=== PATIENT | male | born 1960 | race Caucasian/White ===

== ENCOUNTER 2021-05-30 20:35 | Inpatient (IN) | payer MEDICAID, OTHER ==
[2021-05-30] VITALS (9 sets, daily range): BP systolic 149–163; BP diastolic 62–78
[~2021-05-30] VITALS: Ht 167.6 cm; Wt 68.5 kg
[2021-05-30 21:30] LABS: BG BASE EXCESS -1.1 mmol/L (-2.0-2.0); BG CARBOXYHEMOGLOBIN 0.3 % (0.5-1.5); BG DEOXYHEMOGLOBIN 1.1 % (0.0-5.0); BG FRACTION INSPIRED OXYGEN 40; BG HCO3 ACT 20.8 mmol/L (22.0-26.0); BG METHEMOGLOBIN 0.2 % (0.0-1.5); BG OXYGEN SATURATION 98.9 % (92.0-98.5); BG OXYHEMOGLOBIN 98.4 % (94.0-97.0); BG PH 7.505 (7.350-7.450); BG PO2 175.4 mmHg (75.0-100.0); BG SAMPLE SITE RIGHT RADIAL; BG TOTAL RESPIRATORY RATE 30 b/min; BG VENT MODE VENT - AC
[2021-05-30 21:51] LABS: BASOPHILS % 0.4 % (0.0-2.0); EOSINOPHILS % 2.9 % (0.0-5.0); HEMATOCRIT. 31.6 % (42.0-52.0); HEMOGLOBIN. 10.9 g/dL (14.0-18.0); LYMPHOCYTES % 8.3 % (20.0-50.0); MEAN CORPUSCULAR HEMOGLOBIN 32.8 pg (28.0-32.0); MEAN CORPUSCULAR VOLUME 94.8 fL (80.0-94.0); MEAN PLATELET VOLUME 7.8 fl (7.4-10.4); MONOCYTES % 6.5 % (2.0-8.0); NEUTROPHILS % 81.9 % (40.0-76.0); PLATELET 587 x1000/uL (130-400); RED BLOOD CELL COUNT 3.33 mill/uL (4.7-6.1); RED CELL DISTRIBUTION WIDTH 13.3 % (11.6-14.6)
[2021-05-30 21:55] LABS: CHLORIDE 122 mEq/L (98-107)
[2021-05-30] MEDS: NICARDIPINE 100 MG in SODIUM CHLORIDE 0.9% 60 ML IV PRN (22:38)
[2021-05-31] VITALS (98 sets, daily range): BP systolic 111–176; BP diastolic 50–94
[2021-05-31] MEDS ORDERED: METOPROLOL TARTRATE 50MG TABLET PO SCH (01:15)
[2021-05-31] MEDS: HYDRALAZINE 20MG/ML VIAL IV PRN ×2 (01:25→14:59)
[2021-05-31] MEDS: FENTANYL CITRATE/PF 2,500 MCG in SODIUM CHLORIDE 0.9% 200 ML IV PRN (02:38)
[2021-05-31] MEDS: NICARDIPINE 100 MG in SODIUM CHLORIDE 0.9% 60 ML IV PRN (05:40)
[2021-05-31 06:21] LABS: CHLORIDE 121 mEq/L (98-107)
[2021-05-31 06:24] LABS: HEMATOCRIT. 30.9 % (42.0-52.0); HEMOGLOBIN. 10.5 g/dL (14.0-18.0); MEAN CORPUSCULAR HEMOGLOBIN 33.3 pg (28.0-32.0); MEAN CORPUSCULAR VOLUME 97.5 fL (80.0-94.0); MEAN PLATELET VOLUME 8.4 fl (7.4-10.4); PLATELET 572 x1000/uL (130-400); RED BLOOD CELL COUNT 3.17 mill/uL (4.7-6.1); RED CELL DISTRIBUTION WIDTH 13.2 % (11.6-14.6)
[2021-05-31] MEDS: PANTOPRAZOLE SODIUM 40 MG/VIAL IV SCH (08:35)
[2021-05-31 08:38] LABS: BG BASE EXCESS -0.6 mmol/L (-2.0-2.0); BG CARBOXYHEMOGLOBIN 0.3 % (0.5-1.5); BG DEOXYHEMOGLOBIN 1.5 % (0.0-5.0); BG HCO3 ACT 22.3 mmol/L (22.0-26.0); BG METHEMOGLOBIN 0.3 % (0.0-1.5); BG OXYGEN SATURATION 98.5 % (92.0-98.5); BG OXYHEMOGLOBIN 97.9 % (94.0-97.0); BG PCO2 30.8 mmHg (35.0-45.0); BG PH 7.478 (7.350-7.450); BG PO2 148.9 mmHg (75.0-100.0); BG SAMPLE SITE RIGHT RADIAL; BG TOTAL HEMOGLOBIN 10.6 g/dL (12.0-18.0); BG VENT MODE VENT - AC
[2021-05-31] MEDS: LOSARTAN POTASSIUM 50 MG TABLET PO SCH (11:09)
[2021-05-31] MEDS: AMLODIPINE 10MG TABLET PO SCH (11:09)
[2021-05-31] MEDS: DEXTROSE 5% WATER 1,000 ML IV SCH (11:10)
[2021-05-31] MEDS: METOPROLOL TARTRATE 50MG TABLET PO SCH ×2 (11:11→22:00)
[2021-05-31 17:14] LABS: PLATELET ESTIMATE INCREASED
[2021-06-01] VITALS (96 sets, daily range): BP systolic 116–196; BP diastolic 51–128
[2021-06-01] MEDS: DEXTROSE 5% WATER 1,000 ML IV SCH ×2 (02:25→20:18)
[2021-06-01] MEDS: FENTANYL CITRATE/PF 2,500 MCG in SODIUM CHLORIDE 0.9% 200 ML IV PRN (05:34)
[2021-06-01 06:02] LABS: CHLORIDE 122 mEq/L (98-107); INR 1.1; PROTHROMBIN TIME 11.9 sec (9.6-11.0)
[2021-06-01 06:07] LABS: BASOPHILS % 0.5 % (0.0-2.0); EOSINOPHILS % 3.1 % (0.0-5.0); HEMATOCRIT. 30.9 % (42.0-52.0); HEMOGLOBIN. 10.3 g/dL (14.0-18.0); LYMPHOCYTES % 14.1 % (20.0-50.0); MEAN CORPUSCULAR HEMOGLOBIN 32.5 pg (28.0-32.0); MEAN CORPUSCULAR VOLUME 97.7 fL (80.0-94.0); MONOCYTES % 7.6 % (2.0-8.0); NEUTROPHILS % 74.7 % (40.0-76.0); PLATELET 605 x1000/uL (130-400); RED BLOOD CELL COUNT 3.16 mill/uL (4.7-6.1); RED CELL DISTRIBUTION WIDTH 13.4 % (11.6-14.6)
[2021-06-01] MEDS ORDERED: BACTERIOSTATIC SODIUM CHLORIDE 0.9% 30ML VIAL IJ ONE (08:22)
[2021-06-01] MEDS: METOPROLOL TARTRATE 50MG TABLET PO SCH (08:24)
[2021-06-01] MEDS: LOSARTAN POTASSIUM 50 MG TABLET PO SCH ×4 (08:24→21:46)
[2021-06-01] MEDS: AMLODIPINE 10MG TABLET PO SCH ×2 (08:24→17:39)
[2021-06-01] MEDS: PANTOPRAZOLE SODIUM 40 MG/VIAL IV SCH (08:25)
[2021-06-01] MEDS: HYDRALAZINE 20MG/ML VIAL IV PRN ×3 (08:25→21:47)
[2021-06-01] MEDS ORDERED: POTASSIUM CHLORIDE INJ 40 MEQ in DEXT 5% WATER 250 ML IV ONE (08:45)
[2021-06-01] MEDS ORDERED: CEFAZOLIN 1000MG PREMIX 50 ML IV SCH (09:00)
[2021-06-01] MEDS: KCL 20MEQ/100ML PREMIX 100 ML IV SCH ×2 (10:05→12:35)
[2021-06-01] MEDS: IPRATROPIUM/ALBUTEROL 0.5-3(2.5)MG/3ML NEB HHN SCH (16:02)
[2021-06-01] MEDS ORDERED: MIDAZOLAM HCL 5 MG/5 ML VIAL ONE (16:15)
[2021-06-01] MEDS ORDERED: FENTANYL CITRATE/PF 50MCG/ML 2ML VIAL ONE (16:15)
[2021-06-01] MEDS ORDERED: MIDAZOLAM HCL 5 MG/5 ML VIAL IV PRN (16:25)
[2021-06-01] MEDS: ACETAMINOPHEN 650MG/20.3ML UDC PO PRN (17:43)
[2021-06-01] MEDS: NICARDIPINE 100 MG in SODIUM CHLORIDE 0.9% 60 ML IV PRN (20:00)
[2021-06-01] MEDS: LEVOFLOXACIN 500MG PREMIX 100 ML IV SCH (20:18)
[2021-06-01 21:15] LABS: CLARITY URINE CLOUDY (CLEAR); COLOR URINE ORANGE (YELLOW); KETONES URINE NEGATIVE (NEGATIVE); LEUKOCYTE ESTERASE URINE TRACE (NEGATIVE); NITRITE URINE NEGATIVE (NEGATIVE); OCCULT BLOOD URINE 3+ (NEGATIVE); PH URINE 5.5 (4.5-8.0); PROTEIN URINE 2+ (NEGATIVE); SPECIFIC GRAVITY URINE 1.012 (1.005-1.030)
[2021-06-01] MEDS: LEVETIRACETAM 500MG/5ML CUP PO SCH (21:46)
[2021-06-01] MEDS: HYDRALAZINE HCL 100MG TABLET PO SCH (21:46)
[2021-06-02] VITALS (61 sets, daily range): BP systolic 113–169; BP diastolic 50–96
[2021-06-02] MEDS: ACETYLCYSTEINE 100MG/ML 10% VIAL 4ML INH SCH ×3 (00:55→17:05)
[2021-06-02] MEDS: IPRATROPIUM/ALBUTEROL 0.5-3(2.5)MG/3ML NEB HHN SCH ×3 (00:55→17:05)
[2021-06-02] MEDS: HYDRALAZINE 20MG/ML VIAL IV PRN (04:34)
[2021-06-02 04:46] LABS: BASOPHILS % 0.7 % (0.0-2.0); EOSINOPHILS % 2.3 % (0.0-5.0); HEMATOCRIT. 32.9 % (42.0-52.0); HEMOGLOBIN. 11.3 g/dL (14.0-18.0); MEAN CORPUSCULAR HEMOGLOBIN 32.8 pg (28.0-32.0); MEAN CORPUSCULAR VOLUME 95.4 fL (80.0-94.0); MEAN PLATELET VOLUME 7.7 fl (7.4-10.4); MONOCYTES % 5.3 % (2.0-8.0); NEUTROPHILS % 83.7 % (40.0-76.0); PLATELET 612 x1000/uL (130-400); RED BLOOD CELL COUNT 3.44 mill/uL (4.7-6.1); RED CELL DISTRIBUTION WIDTH 12.9 % (11.6-14.6)
[2021-06-02 04:53] LABS: CHLORIDE 119 mEq/L (98-107)
[2021-06-02] MEDS: HYDRALAZINE HCL 100MG TABLET PO SCH ×3 (06:10→23:03)
[2021-06-02] MEDS: DESMOPRESSIN ACETATE 0.1MG TABLET PO SCH ×2 (08:03→20:40)
[2021-06-02] MEDS: LEVETIRACETAM 500MG/5ML CUP PO SCH ×2 (08:03→20:39)
[2021-06-02] MEDS: PANTOPRAZOLE SODIUM 40 MG/VIAL IV SCH (08:03)
[2021-06-02] MEDS: AMLODIPINE 10MG TABLET PO SCH (08:03)
[2021-06-02] MEDS: LOSARTAN POTASSIUM 50 MG TABLET PO SCH ×2 (08:03→20:40)
[2021-06-02] MEDS: NICARDIPINE 100 MG in SODIUM CHLORIDE 0.9% 60 ML IV PRN (08:08)
[2021-06-02] MEDS: DEXTROSE 5% WATER 1,000 ML IV SCH (11:15)
[2021-06-02] MEDS: LEVOFLOXACIN 500MG PREMIX 100 ML IV SCH (18:38)
[2021-06-02] MEDS: MINOXIDIL 2.5MG TABLET PO SCH (20:40)
[2021-06-02] MEDS: METOPROLOL TARTRATE 25MG TABLET PO SCH (20:40)
[2021-06-02] MEDS ORDERED: AMLODIPINE 10MG TABLET PO SCH (21:00)
[2021-06-03] VITALS (12 sets, daily range): BP systolic 118–150; BP diastolic 54–93
[2021-06-03] MEDS: ACETAMINOPHEN 650MG/20.3ML UDC PO PRN ×2 (00:43→15:04)
[2021-06-03] MEDS: IPRATROPIUM/ALBUTEROL 0.5-3(2.5)MG/3ML NEB HHN SCH ×3 (00:51→15:44)
[2021-06-03] MEDS: ACETYLCYSTEINE 100MG/ML 10% VIAL 4ML INH SCH ×3 (00:51→15:44)
[2021-06-03] MEDS: DEXTROSE 5% WATER 1,000 ML IV SCH ×2 (01:01→20:59)
[2021-06-03] MEDS: HYDRALAZINE HCL 100MG TABLET PO SCH ×3 (05:05→21:03)
[2021-06-03 06:46] LABS: BASOPHILS % 0.3 % (0.0-2.0); EOSINOPHILS % 3.3 % (0.0-5.0); HEMATOCRIT. 28.8 % (42.0-52.0); LYMPHOCYTES % 11.9 % (20.0-50.0); MEAN CORPUSCULAR HEMOGLOBIN 33.2 pg (28.0-32.0); MEAN CORPUSCULAR VOLUME 95.9 fL (80.0-94.0); MEAN PLATELET VOLUME 7.6 fl (7.4-10.4); MONOCYTES % 5.3 % (2.0-8.0); NEUTROPHILS % 79.2 % (40.0-76.0); PLATELET 521 x1000/uL (130-400); RED BLOOD CELL COUNT 3.01 mill/uL (4.7-6.1); RED CELL DISTRIBUTION WIDTH 12.9 % (11.6-14.6)
[2021-06-03 06:52] LABS: CHLORIDE 117 mEq/L (98-107)
[2021-06-03] MEDS ORDERED: POTASSIUM CHLORIDE 20MEQ/PACKET GT NR (09:00)
[2021-06-03] MEDS: PANTOPRAZOLE SODIUM 40 MG/VIAL IV SCH (09:32)
[2021-06-03] MEDS: LOSARTAN POTASSIUM 50 MG TABLET PO SCH ×2 (09:33→20:54)
[2021-06-03] MEDS: MINOXIDIL 2.5MG TABLET PO SCH ×2 (09:33→20:55)
[2021-06-03] MEDS: AMLODIPINE 10MG TABLET PO SCH (09:34)
[2021-06-03] MEDS: DESMOPRESSIN ACETATE 0.1MG TABLET PO SCH ×2 (09:34→20:54)
[2021-06-03] MEDS: LEVETIRACETAM 500MG/5ML CUP PO SCH ×2 (09:35→20:54)
[2021-06-03] MEDS: METOPROLOL TARTRATE 25MG TABLET PO SCH ×2 (09:35→20:56)
[2021-06-03] MEDS: LEVOFLOXACIN 500MG PREMIX 100 ML IV SCH (18:08)
[2021-06-04] VITALS (11 sets, daily range): BP systolic 112–179; BP diastolic 68–111
[2021-06-04] MEDS: IPRATROPIUM/ALBUTEROL 0.5-3(2.5)MG/3ML NEB HHN SCH ×3 (00:37→16:51)
[2021-06-04] MEDS: ACETYLCYSTEINE 100MG/ML 10% VIAL 4ML INH SCH ×3 (00:37→16:51)
[2021-06-04] MEDS: HYDRALAZINE HCL 100MG TABLET PO SCH ×3 (05:06→22:30)
[2021-06-04 06:19] LABS: BASOPHILS % 0.5 % (0.0-2.0); EOSINOPHILS % 4.4 % (0.0-5.0); HEMATOCRIT. 30.4 % (42.0-52.0); HEMOGLOBIN. 10.2 g/dL (14.0-18.0); LYMPHOCYTES % 8.8 % (20.0-50.0); MEAN CORPUSCULAR HEMOGLOBIN 32.1 pg (28.0-32.0); MEAN CORPUSCULAR VOLUME 95.2 fL (80.0-94.0); MEAN PLATELET VOLUME 7.7 fl (7.4-10.4); MONOCYTES % 4.4 % (2.0-8.0); NEUTROPHILS % 81.9 % (40.0-76.0); PLATELET 512 x1000/uL (130-400); RED BLOOD CELL COUNT 3.19 mill/uL (4.7-6.1); RED CELL DISTRIBUTION WIDTH 12.8 % (11.6-14.6)
[2021-06-04 07:05] LABS: CHLORIDE 115 mEq/L (98-107)
[2021-06-04] MEDS: FAMOTIDINE 20MG/2ML VIAL IV SCH ×2 (08:43→20:46)
[2021-06-04] MEDS: LEVETIRACETAM 500MG/5ML CUP PO SCH ×2 (08:43→20:46)
[2021-06-04] MEDS: LOSARTAN POTASSIUM 50 MG TABLET PO SCH ×2 (08:43→20:47)
[2021-06-04] MEDS: AMLODIPINE 10MG TABLET PO SCH (08:44)
[2021-06-04] MEDS: METOPROLOL TARTRATE 25MG TABLET PO SCH ×2 (08:44→20:47)
[2021-06-04] MEDS: DESMOPRESSIN ACETATE 0.1MG TABLET PO SCH ×2 (08:44→20:48)
[2021-06-04] MEDS: MINOXIDIL 2.5MG TABLET PO SCH ×2 (09:37→20:48)
[2021-06-04] MEDS: DEXTROSE 5% WATER 1,000 ML IV SCH (17:49)
[2021-06-04] MEDS: LEVOFLOXACIN 500MG PREMIX 100 ML IV SCH (18:03)
[2021-06-05] VITALS (11 sets, daily range): BP systolic 108–157; BP diastolic 44–93
[2021-06-05] MEDS: IPRATROPIUM/ALBUTEROL 0.5-3(2.5)MG/3ML NEB HHN SCH ×3 (00:19→14:06)
[2021-06-05] MEDS: ACETYLCYSTEINE 100MG/ML 10% VIAL 4ML INH SCH ×3 (00:20→14:06)
[2021-06-05] MEDS: HYDRALAZINE HCL 100MG TABLET PO SCH ×3 (05:08→21:48)
[2021-06-05] MEDS: DEXTROSE 5% WATER 1,000 ML IV SCH (05:09)
[2021-06-05 05:56] LABS: BASOPHILS % 0.4 % (0.0-2.0); EOSINOPHILS % 5.5 % (0.0-5.0); HEMATOCRIT. 30.3 % (42.0-52.0); HEMOGLOBIN. 10.5 g/dL (14.0-18.0); LYMPHOCYTES % 10.9 % (20.0-50.0); MEAN CORPUSCULAR HEMOGLOBIN 32.9 pg (28.0-32.0); MEAN CORPUSCULAR VOLUME 94.7 fL (80.0-94.0); MEAN PLATELET VOLUME 7.4 fl (7.4-10.4); MONOCYTES % 5.6 % (2.0-8.0); NEUTROPHILS % 77.6 % (40.0-76.0); PLATELET 466 x1000/uL (130-400); RED CELL DISTRIBUTION WIDTH 12.8 % (11.6-14.6)
[2021-06-05 06:10] LABS: CHLORIDE 111 mEq/L (98-107)
[2021-06-05] MEDS: AMLODIPINE 10MG TABLET PO SCH (09:00)
[2021-06-05] MEDS: METOPROLOL TARTRATE 25MG TABLET PO SCH ×2 (09:00→21:48)
[2021-06-05] MEDS: LOSARTAN POTASSIUM 50 MG TABLET PO SCH ×2 (09:00→21:49)
[2021-06-05] MEDS: MINOXIDIL 2.5MG TABLET PO SCH ×2 (09:00→21:47)
[2021-06-05] MEDS: LEVETIRACETAM 500MG/5ML CUP PO SCH ×2 (09:50→21:48)
[2021-06-05] MEDS: DESMOPRESSIN ACETATE 0.1MG TABLET PO SCH ×2 (09:50→21:49)
[2021-06-05] MEDS: FAMOTIDINE 20MG/2ML VIAL IV SCH ×2 (09:50→21:47)
[2021-06-05] MEDS: ACETAMINOPHEN 650MG/20.3ML UDC PO PRN ×2 (10:06→16:22)
[2021-06-05] MEDS: LEVOFLOXACIN 500MG PREMIX 100 ML IV SCH (18:45)
[2021-06-06] VITALS (12 sets, daily range): BP systolic 89–139; BP diastolic 46–74
[2021-06-06] MEDS: ACETYLCYSTEINE 100MG/ML 10% VIAL 4ML INH SCH ×4 (00:30→16:08)
[2021-06-06] MEDS: IPRATROPIUM/ALBUTEROL 0.5-3(2.5)MG/3ML NEB HHN SCH ×3 (00:56→16:08)
[2021-06-06] MEDS: HYDRALAZINE HCL 100MG TABLET PO SCH ×3 (05:27→21:06)
[2021-06-06 06:06] LABS: HEMATOCRIT. 30.4 % (42.0-52.0); HEMOGLOBIN. 10.3 g/dL (14.0-18.0)
[2021-06-06 06:07] LABS: BASOPHILS % 0.2 % (0.0-2.0); LYMPHOCYTES % 8.8 % (20.0-50.0); MEAN CORPUSCULAR HEMOGLOBIN 32.2 pg (28.0-32.0); MEAN CORPUSCULAR VOLUME 94.8 fL (80.0-94.0); MONOCYTES % 3.8 % (2.0-8.0); NEUTROPHILS % 84.2 % (40.0-76.0); PLATELET 411 x1000/uL (130-400); RED CELL DISTRIBUTION WIDTH 12.4 % (11.6-14.6)
[2021-06-06 06:29] LABS: CHLORIDE 108 mEq/L (98-107)
[2021-06-06] MEDS: FAMOTIDINE 20MG/2ML VIAL IV SCH (09:09)
[2021-06-06] MEDS: LEVETIRACETAM 500MG/5ML CUP PO SCH ×2 (09:09→21:02)
[2021-06-06] MEDS: LOSARTAN POTASSIUM 50 MG TABLET PO SCH ×2 (09:09→21:02)
[2021-06-06] MEDS: METOPROLOL TARTRATE 25MG TABLET PO SCH ×2 (09:09→21:06)
[2021-06-06] MEDS: MINOXIDIL 2.5MG TABLET PO SCH ×2 (09:10→21:07)
[2021-06-06] MEDS: AMLODIPINE 10MG TABLET PO SCH (09:10)
[2021-06-06] MEDS: DESMOPRESSIN ACETATE 0.1MG TABLET PO SCH ×2 (09:40→21:02)
[2021-06-06] MEDS: METOCLOPRAMIDE HCL 10MG/2ML VIAL IV SCH ×3 (13:01→23:00)
[2021-06-06] MEDS: FAMOTIDINE 20MG TABLET PO SCH (21:03)
[2021-06-07] VITALS (13 sets, daily range): BP systolic 101–136; BP diastolic 52–80
[2021-06-07] MEDS: IPRATROPIUM/ALBUTEROL 0.5-3(2.5)MG/3ML NEB HHN SCH ×3 (00:34→15:17)
[2021-06-07] MEDS: HYDRALAZINE HCL 100MG TABLET PO SCH ×3 (05:26→21:40)
[2021-06-07] MEDS: METOCLOPRAMIDE HCL 10MG/2ML VIAL IV SCH ×4 (05:26→23:03)
[2021-06-07 05:45] LABS: CHLORIDE 108 mEq/L (98-107)
[2021-06-07 06:29] LABS: BASOPHILS % 0.3 % (0.0-2.0); HEMATOCRIT. 29.3 % (42.0-52.0); HEMOGLOBIN. 9.9 g/dL (14.0-18.0); LYMPHOCYTES % 7.3 % (20.0-50.0); MEAN CORPUSCULAR HEMOGLOBIN 32.3 pg (28.0-32.0); MEAN CORPUSCULAR VOLUME 95.5 fL (80.0-94.0); MEAN PLATELET VOLUME 8.1 fl (7.4-10.4); MONOCYTES % 5.1 % (2.0-8.0); NEUTROPHILS % 83.3 % (40.0-76.0); PLATELET 366 x1000/uL (130-400); RED BLOOD CELL COUNT 3.06 mill/uL (4.7-6.1); RED CELL DISTRIBUTION WIDTH 12.5 % (11.6-14.6)
[2021-06-07] MEDS: LEVETIRACETAM 500MG/5ML CUP PO SCH ×2 (08:45→21:40)
[2021-06-07] MEDS: DESMOPRESSIN ACETATE 0.1MG TABLET PO SCH ×2 (08:45→21:40)
[2021-06-07] MEDS: FAMOTIDINE 20MG TABLET PO SCH ×2 (08:46→21:41)
[2021-06-07] MEDS: METOPROLOL TARTRATE 25MG TABLET PO SCH ×2 (08:47→21:41)
[2021-06-07] MEDS: MINOXIDIL 2.5MG TABLET PO SCH ×2 (08:47→21:41)
[2021-06-07] MEDS: AMLODIPINE 10MG TABLET PO SCH (08:47)
[2021-06-07] MEDS: LOSARTAN POTASSIUM 50 MG TABLET PO SCH ×2 (08:48→21:41)
[2021-06-08] VITALS (12 sets, daily range): BP systolic 102–156; BP diastolic 55–82
[2021-06-08] MEDS: IPRATROPIUM/ALBUTEROL 0.5-3(2.5)MG/3ML NEB HHN SCH ×4 (00:32→20:16)
[2021-06-08] MEDS: METOCLOPRAMIDE HCL 10MG/2ML VIAL IV SCH ×4 (05:09→23:40)
[2021-06-08] MEDS: HYDRALAZINE HCL 100MG TABLET PO SCH ×3 (05:09→20:38)
[2021-06-08 06:31] LABS: BASOPHILS % 0.5 % (0.0-2.0); EOSINOPHILS % 5.3 % (0.0-5.0); HEMATOCRIT. 34.6 % (42.0-52.0); HEMOGLOBIN. 11.9 g/dL (14.0-18.0); LYMPHOCYTES % 11.7 % (20.0-50.0); MEAN CORPUSCULAR HEMOGLOBIN 32.5 pg (28.0-32.0); MEAN CORPUSCULAR VOLUME 94.2 fL (80.0-94.0); MEAN PLATELET VOLUME 8.5 fl (7.4-10.4); MONOCYTES % 7.5 % (2.0-8.0); PLATELET 370 x1000/uL (130-400); RED BLOOD CELL COUNT 3.67 mill/uL (4.7-6.1); RED CELL DISTRIBUTION WIDTH 12.5 % (11.6-14.6)
[2021-06-08 06:44] LABS: CHLORIDE 112 mEq/L (98-107)
[2021-06-08] MEDS: LOSARTAN POTASSIUM 50 MG TABLET PO SCH ×2 (09:00→20:38)
[2021-06-08] MEDS: AMLODIPINE 10MG TABLET PO SCH (09:00)
[2021-06-08] MEDS: LEVETIRACETAM 500MG/5ML CUP PO SCH ×2 (09:09→20:38)
[2021-06-08] MEDS: MINOXIDIL 2.5MG TABLET PO SCH ×2 (09:09→20:45)
[2021-06-08] MEDS: METOPROLOL TARTRATE 25MG TABLET PO SCH ×2 (09:09→20:44)
[2021-06-08] MEDS: DESMOPRESSIN ACETATE 0.1MG TABLET PO SCH ×2 (09:10→20:39)
[2021-06-08] MEDS: FAMOTIDINE 20MG TABLET PO SCH ×2 (09:10→20:38)
[2021-06-08] MEDS: ACETAMINOPHEN 650MG/20.3ML UDC PO PRN (12:49)
[2021-06-08] MEDS ORDERED: LEVOFLOXACIN 500MG TABLET PO NR (15:45)
[2021-06-09] VITALS (15 sets, daily range): BP systolic 100–139; BP diastolic 50–78
[2021-06-09] MEDS: ACETAMINOPHEN 650MG/20.3ML UDC PO PRN (04:35)
[2021-06-09] MEDS: METOCLOPRAMIDE HCL 10MG/2ML VIAL IV SCH ×3 (05:06→18:29)
[2021-06-09] MEDS: HYDRALAZINE HCL 100MG TABLET PO SCH ×3 (05:06→21:12)
[2021-06-09] MEDS: IPRATROPIUM/ALBUTEROL 0.5-3(2.5)MG/3ML NEB HHN SCH ×2 (08:51→16:20)
[2021-06-09] MEDS ORDERED: LEVOFLOXACIN 500MG TABLET PO SCH (09:00)
[2021-06-09] MEDS: FAMOTIDINE 20MG TABLET PO SCH ×2 (09:11→21:18)
[2021-06-09] MEDS: LOSARTAN POTASSIUM 50 MG TABLET PO SCH ×2 (09:11→21:00)
[2021-06-09] MEDS: MINOXIDIL 2.5MG TABLET PO SCH ×2 (09:11→21:00)
[2021-06-09] MEDS: LEVETIRACETAM 500MG/5ML CUP PO SCH ×2 (09:11→21:15)
[2021-06-09] MEDS: AMLODIPINE 10MG TABLET PO SCH (09:12)
[2021-06-09] MEDS: METOPROLOL TARTRATE 25MG TABLET PO SCH ×2 (09:12→21:00)
[2021-06-09] MEDS: DESMOPRESSIN ACETATE 0.1MG TABLET PO SCH ×2 (09:19→21:15)
[2021-06-10] MEDS: METOCLOPRAMIDE HCL 10MG/2ML VIAL IV SCH (00:04)
== END 2021-06-10 00:30 | DRG 130 ==
LOC: MICUSO 20:35 → 5EST 06-02 14:30
PROVIDERS: ADMIT Internal Medicine; ATTEND Internal Medicine
PROC: 5A1955Z Respiratory Ventilation, Greater than 96 Consecutive Hours (ICD-10-PCS; 2021-05-30)
PROC: 0DH63UZ Insertion of Feeding Device into Stomach, Percutaneous Approach (ICD-10-PCS; principal; 2021-06-01)
DX: J96.00 Acute respiratory failure, unspecified whether with hypoxia or hypercapnia (principal); G93.40 Encephalopathy, unspecified; E46 Unspecified protein-calorie malnutrition; L89.816 Pressure-induced deep tissue damage of head; E87.0 Hyperosmolality and hypernatremia; L89.896 Pressure-induced deep tissue damage of other site; E87.8 Other disorders of electrolyte and fluid balance, not elsewhere classified; N40.0 Benign prostatic hyperplasia without lower urinary tract symptoms; R13.12 Dysphagia, oropharyngeal phase; G40.909 Epilepsy, unspecified, not intractable, without status epilepticus; D64.9 Anemia, unspecified; E87.6 Hypokalemia; K29.70 Gastritis, unspecified, without bleeding; Z20.822 Contact with and (suspected) exposure to COVID-19; I11.9 Hypertensive heart disease without heart failure; Z93.1 Gastrostomy status; Z99.11 Dependence on respirator [ventilator] status; Z51.5 Encounter for palliative care; Z86.73 Personal history of transient ischemic attack (TIA), and cerebral infarction without residual deficits; Z68.24 Body mass index [BMI] 24.0-24.9, adult; Z79.899 Other long term (current) drug therapy; Z88.8 Allergy status to other drugs, medicaments and biological substances; Z93.0 Tracheostomy status
CPT/HCPCS: 36415; 36600; 71045; 74018; 80048; 80053; 81003; 82375; 82805; 83930; 83935; 84134; 84145; 85025; 87426; 93970; 94002; 94003; 94640; A6261; C9113; J0360; J0690; J1956; J2250; J2765; J3010; J3480; J3490; J7040; J7050; J7070; J7608